=== PATIENT | female | born 1995 | race Caucasian/White ===

== ENCOUNTER 2016-06-07 20:43 | Emergency (ER) | payer BC ==
[2016-06-07 20:49] VITALS: RESP 16; TEMP 97.7
[2016-06-07] MEDS ORDERED: CLINDAMYCIN 900 MG in NS 100 ML IV ONE (21:54)
[2016-06-07] MEDS ORDERED: DEXAMETHASONE 10 MG/ML VIAL IVP ONE (21:54)
[2016-06-07] MEDS ORDERED: NS 1,000 ML IV ONE (22:01)
--- NOTE | 2016-06-07 22:19 | EDPHY ---
H & P Stated Complaint: Sore throat x 1 week, intermittent fever, vomiting blood today HPI/ROS: Chief complaint: Sore throat History of present illness: This is a 21-year-old female who presents to the emergency department for evaluation of a sore throat. Patient reports the onset of symptoms over the last week. In addition to the sore throat she has had tactile fevers and body aches. She states the sore throat dramatically worsened today. She developed some nausea and occasional vomiting with blood in it. She feels her throat has significant swelled up. She still able swallow and breathe normally. No report of difficulty breathing or rash. Review of systems: A 10 point review of systems was obtained and other than described above was negative - Personal History LMP (Females 10-55): Now Current Tetanus/Diphtheria Vaccine: Unsure Current Tetanus Diphtheria and Acellular Pertussis (TDAP): Unsure - Medical/Surgical History Hx Asthma: Yes Hx Chronic Respiratory Disease: No Hx Diabetes: No Hx Cardiac Disease: No Hx Renal Disease: No Hx Cirrhosis: No Hx Alcoholism: No Hx HIV/AIDS: No Hx Splenectomy or Spleen Trauma: No Other PMH: asthma - Social History Smoking Status: Never smoked - Physical Exam Exam: General Appearance: Alert, nontoxic. Eyes: Pupils equal and round no injection. ENT: Tympanic membranes, external auditory canals, external ears and surrounding soft tissue including over the mastoids are unremarkable. Nasopharynx is not injected. There is no rhinorrhea. Oropharynx is injected. There is diffuse edema. There is tonsillar hypertrophy with asymmetry, right greater than left. Mild hoarseness. There is no trismus, no drooling, no stridor. Respiratory: Chest is nontender, lungs are clear to auscultation. Cardiac: regular rate and rhythm. Musculoskeletal: Neck is supple and nontender. Extremities have full range of motion and are nontender. Skin: No rashes or lesions. Constitutional: Initial Vital Signs Temperature (C) 36.5 C 06/07/16 20:46 Heart Rate 99 06/07/16 20:46 Respiratory Rate 16 06/07/16 20:46 Blood Pressure 113/73 06/07/16 20:46 O2 Sat (%) 95 06/07/16 20:46 O2 Delivery Mode Room Air Allergies/Adverse Reactions: No Known Allergies Allergy (Verified 06/07/16 20:50) Home Medications: Medication Instructions Recorded Clindamycin HCl [Clindamycin] 300 mg PO QID 10 Days 06/07/16 methylPREDNISolone [Medrol Dose 1 each PO AD #1 ea 06/07/16 Tio] Medical Decision Making ED Course/Re-evaluation: Patient seen under the supervision of my secondary supervising physician Dr. Giovani Sandoval. Patient presents to the emergency department with worsening sore throat. Ultimately I am concerned for peritonsillar abscess. ENT is consulted , Dr. Hamida Marte. She has come to the emergency department and evaluated the patient. We have given patient 10 mg of Decadron IV and 900 mg of clindamycin. She is comfortable with patient being discharged home and following up in clinic. Patient will be discharged home on a Medrol Dosepak and clindamycin as per direction of Dr. Marte. Home care is discussed with the patient. Strict return precautions are given. Patient voiced understanding and agreement with plan. Differential Diagnosis: Included but not limited to pharyngitis, strep pharyngitis, mononucleosis, abscess formations - Data Points Medications Given: Discontinued Medications Dexamethasone (Decadron Injection) 10 mg IVP EDNOW ONE Stop: 06/07/16 21:55 Last Admin: 06/07/16 22:01 Dose: 10 mg Sodium Chloride (Ns) 1,000 mls @ 0 mls/hr IV ONCE ONE PRN Reason: Wide Open Stop: 06/07/16 22:02 Last Admin: 06/07/16 22:03 Dose: 1,000 mls Clindamycin Phosphate/Dextrose (Cleocin 900 Mg (Premix)) 50 mls @ 100 mls/hr IV EDNOW ONE Stop: 06/07/16 22:59 Last Admin: 06/07/16 22:24 Dose: 50 mls Departure - Departure Disposition: Home, Routine, Self-Care Clinical Impression: Peritoneal abscess Condition: Good Instructions: Peritonsillar Abscess (ED) Additional Instructions: Follow-up with the Ears Nose and Throat doctor this week as discussed with her If symptoms worsen or new symptoms develop return to the emergency room for recheck Referrals: NONE *PRIMARY CARE P,. [Primary Care Provider] - As per Instructions Hamida Marte MD [Medical Doctor] - As per Instructions Prescriptions: Clindamycin HCl [Clindamycin] 300 mg PO QID 10 Days methylPREDNISolone [Medrol Dose Tio] 1 each PO AD #1 ea
[2016-06-07] MEDS ORDERED: CLINDAMYCIN 900 MG/DEXTROSE 50 ML IV ONE (22:30)
[2016-06-07 23:07] VITALS: BP 109/64; PULSE 76; O2SAT 98
--- NOTE | 2016-06-08 10:45 | GCON ---
[f rep st] CONSULTATION EMERGENCY DEPARTMENT CONSULTATION REFERRING PHYSICIAN: Giovani Sandoval MD REFERRING PHYSICIAN: Giovani Sandoval MD, [facility] emergency physician REASON FOR CONSULTATION: Rule out right MATERNAL FETAL PHYSICIAN. 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 Over the last 4 days, the right side of her throat has become progressively worse. What prompted her visit to the emergency department tonight was that she had some emesis that had some blood in it, and she became concerned and presented to the ED. She denies any trismus. She does have some mild right referred ear pain. She has not taken her own temperature recently, but she does feel warm. PAST MEDICAL HISTORY: Well-controlled asthma. PAST SURGICAL HISTORY: None. CURRENT MEDICATIONS: None - She did receive 900 mg of clindamycin through the IV, 1 L of fluids, as well as 10 of Decadron in the emergency department. SOCIAL HISTORY: She is originally from [place], [place].. 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 She is a nonsmoker and participates in extensive athletics primary track and field running. FAMILY HISTORY: She denies a known history of high blood pressure, cardiac disease, pulmonary disease, or hypertension. REVIEW OF SYSTEMS: Ten point review of systems is performed and is otherwise negative as described in the history of present illness. PHYSICAL EXAMINATION: GENERAL: She is awake, alert, oriented in no apparent distress. Her voice is actually relatively clear. There is no real muffled or hot potato quality to it. HEENT: Pupils are equal and reactive to light. Extraocular muscles are intact. Bilateral pinnae, external auditory canals intact. Membranes are normal. Intranasal rhinoscopy is unremarkable. Oral cavity did reveal kissing 4+ tonsils that are somewhat irregular with some mild exudates laterally. The right side is ever so slightly carbajal than the left, although this is not particularly remarkable. On palpation over the superior pole of the tonsil does reveal increased tenderness on the right side as compared to the left. NECK: Otherwise supple without adenopathy or mass. Trachea is midline. No thyroid mass is noted. CRANIAL NERVES: II through XII are otherwise intact. PROCEDURE: The risks, benefits, and alternatives of needle aspiration of the right peritonsillar space was discussed. I discussed with her beforehand that this may simply represent cellulitis, however, it can develop into an abscess despite appropriate medical therapy over the next several days. She signed the consent. She was anesthetized with 0.8 mL of 1% lidocaine with 1:100,000 epinephrine over the superior tonsillar pole on the right. Three passes with an 18G needle were made on a 10 cc syringe but there was no return of pus. I opted to stop at this point. IMPRESSION: 1. Right peritonsillar cellulitis. 2. Bilateral tonsillar hypertrophy with tonsillitis. RECOMMENDATIONS: She should be transitioned to clindamycin 300 mg q.i.d., as well as a Medrol Dosepak. Common risks and side effects of oral steroids including AVN of the hips or shoulders were discussed with the patient. However , I do think for reduction of swelling and treatment, this is an appropriate management option for her. She will follow up with me in the next 48-72 hours unless she otherwise worsens, she should be instructed to return to the emergency department. /[id number]/MODL MTDD
== END 2016-06-07 23:06 | disposition home or self-care (01) ==
DX: K65.1 Peritoneal abscess (principal); J45.909 Unspecified asthma, uncomplicated
CPT/HCPCS: 96365